=== PATIENT | male | born 2000 | race Caucasian/White ===

== ENCOUNTER 2023-06-17 19:33 | Emergency (ER) | payer OTHER, SELFPAY ==
[2023-06-17 19:39] VITALS: BP 119/67; PULSE 52; RESP 18; O2SAT 99; BMI 29.9
--- NOTE | 2023-06-17 20:56 | W.ED.WOUNDLC ---
HPI - Wound/Laceration General: Chief Complaint: Wound/Laceration Stated Complaint: Left hand lac Time Seen by Provider: 06/17/23 19:42 History of Present Illness: Patient is in today for laceration left hand. He reports that he was getting ready to clean a deer and he cut his hand with a brand-new knife. He reports that it was not dirty at all. He states that his last tetanus vaccination was approximately 8 years ago. He refuses to be updated on his tetanus vaccination today. Associated symptoms: Denies chills or fever(s) Review of Systems Const: Denies: fever(s) or chills Skin/Breast: Reports: other (Laceration left hand) Physical Exam Const: COMMON NORMALS: no acute distress, patient oriented x3 and alert Neuro: COMMON NORMALS: patient oriented x3 SENSORIUM/ORIENTATION: Yes alert Skin: NARRATIVE SKIN EXAM: There is an approximate 2-1/2 cm laceration left dorsal hand horizontal between the thumb and the index finger. SKIN IMAGES (MALE): 1. 2-1/2 cm laceration?bleeding is well controlled. Adipose tissue is seen. No deep structures or tendons visualized. Full range of motion to the entire hand. Wound is clean. Procedures Laceration Left dorsal hand: Site: upper extremity Side (If applicable): left Size (cm): 2.5 Description: linear and clean Depth: simple, single layer Local Anesthetic: lidocaine 1% and with epi Amount of anesthesia used (mL): 5 Pre-repair: wound explored, irrigated extensively and deep structures intact Skin layer closed with: other (Prolene) Size (cm): 4-0 Technique: running Course Vital Signs: Vital signs: Vital Signs Pulse Rate 78 06/17/23 21:00 Respiratory Rate 18 06/17/23 21:00 Blood Pressure 125/75 06/17/23 21:00 Pulse Oximetry 95 06/17/23 21:00 MDM - Wound/Laceration Medical Decision Making Laceration I discussed different methods of wound closure including skin glue and suture repair. We discussed healing. Given that this is a more high tense area I recommend suture repair. Discussed potential benefits and risk of suture repair including, but not limited to, scar formation, infection, bleeding. Patient verbalizes understanding and wishes to proceed with suture repair. See laceration note for procedure details. This was a clean cut with a brand-new knife. Opted not to start patient on prophylactic antibiotics. Patient tetanus vaccine has been within the last 10 years but it has been greater than 5 years. Patient declines tetanus vaccine update today. 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 We discussed discharge instructions including wound care and suture care. Follow-up in 5 to 7 days for suture removal. Return sooner as needed for any new or worsening symptoms. Patient verbalized understanding of all instructions. He is agreeable with plan to discharge home. No radiology studies performed this visit Discharge Plan Discharge Patient Disposition: Home Clinical Impression: Laceration Condition: Stable Discharge Orders: Discharge ED (Routine); Ordered 06/17/23 Ordered By: Namrata Matute Referrals: Dana Garcia FNP [Primary Care Provider] - Discharge Diet: Usual diet Discharge Activity: Resume usual activity Patient Instructions: Care For Your Stitches (ED), Laceration (ED) Activity Restrictions/Additional Instructions: Keep wound clean and dry. Monitor closely for any signs of infection. Follow-up in the ER in 5 to 7 days for suture removal. Return sooner as needed for new or worsening symptoms Coding Level of Care Code ED Longitudinal Float Operator for Anthony Davis
[2023-06-17] MEDS: neomycin-poly-bacitracin oint 28 gm 1 APPLIC TOPICAL (20:59)
[2023-06-17 21:00] VITALS: BP 125/75; PULSE 78; RESP 18; O2SAT 95
== END 2023-06-17 21:05 | disposition home or self-care (01) ==
PROVIDERS: Emergency Provider Nurse Practitioner Family; PCP Nurse Practitioner Family
DX: S61.412A Laceration without foreign body of left hand, initial encounter (principal); W26.0XXA Contact with knife, initial encounter
CPT/HCPCS: 12001; 99282